=== PATIENT | male | born 1995 | race Caucasian/White ===

== ENCOUNTER 2017-03-02 14:54 | Emergency (ER) | payer OTHER ==
[~2017-03-02] VITALS: Ht 190.5 cm; Wt 84.2 kg
[2017-03-02] MEDS ORDERED: ONDANSETRON ODT 4 MG ONE (15:25)
[2017-03-02] MEDS ORDERED: ONDANSETRON ODT 4 MG PO ONE (15:30)
[2017-03-02] MEDS ORDERED: SODIUM CHLORIDE 0.9% 1,000 ML IV ONE (16:14)
[2017-03-02] MEDS ORDERED: ONDANSETRON 2MG/ML, 2ML ONE ×2 (16:16→16:49)
[2017-03-02] MEDS ORDERED: FAMOTIDINE 20 MG/2 ML ONE (16:16)
[2017-03-02] MEDS ORDERED: FAMOTIDINE 20 MG/2 ML IVP ONE (16:30)
[2017-03-02] MEDS ORDERED: SODIUM CHLORIDE 0.9% 1,000ML IVBOLUS ONE (16:30)
[2017-03-02] MEDS ORDERED: SODIUM CHLORIDE FLUSH 10ML SYR IVF ONE (16:30)
[2017-03-02] MEDS ORDERED: ONDANSETRON 2MG/ML, 2ML IVPush ONE (16:30)
[2017-03-02 16:44] LABS: BLOOD UREA NITROGEN 13 mg/dL (7-18)
[2017-03-02 16:47] LABS: ASPARTATE AMINO TRANSFERASE 24 U/L (15-37)
[2017-03-02] MEDS ORDERED: KETOROLAC 30 MG/1 ML ONE (16:49)
[2017-03-02] MEDS ORDERED: KETOROLAC 30 MG/1 ML IVPush ONE (17:00)
[2017-03-02] MEDS ORDERED: PROCHLORPERAZINE 5 MG/ML, 2ML ONE (17:29)
[2017-03-02] MEDS ORDERED: PROCHLORPERAZINE 5 MG/ML, 2ML IVPush ONE (17:30)
[2017-03-02 19:29] VITALS: BP 130/73
== END 2017-03-02 19:31 | disposition home or self-care (01) ==
LOC: ED 16:44
DX: R10.84 Generalized abdominal pain (principal); R11.2 Nausea with vomiting, unspecified; D72.829 Elevated white blood cell count, unspecified
CPT/HCPCS: 36415; 80053; 83690; 85025; 96361; 96374; 96375; 99285; J0780; J1885; J2405; J7030; Q0162; S0028

== ENCOUNTER 2017-05-23 18:47 | Emergency (ER) | payer OTHER ==
[~2017-05-23] VITALS: Ht 190.5 cm; Wt 81.4 kg
[2017-05-23] MEDS ORDERED: FAMOTIDINE 20 MG/2 ML IVP ONE (19:00)
[2017-05-23] MEDS ORDERED: ONDANSETRON 2MG/ML, 2ML IVPush ONE (19:00)
[2017-05-23] MEDS ORDERED: SODIUM CHLORIDE 0.9% 1,000ML IVBOLUS ONE (19:00)
[2017-05-23] MEDS ORDERED: SODIUM CHLORIDE FLUSH 10ML SYR IVF ONE (19:00)
[2017-05-23 19:27] LABS: ASPARTATE AMINO TRANSFERASE 27 U/L (15-37); BLOOD UREA NITROGEN 21 mg/dL (7-18)
[2017-05-23] MEDS ORDERED: ONDANSETRON 2MG/ML, 2ML ONE (19:35)
[2017-05-23] MEDS ORDERED: FAMOTIDINE 20 MG/2 ML ONE (19:35)
[2017-05-23] MEDS ORDERED: SODIUM CHLORIDE 0.9%, 500ML IVBOLUS ONE ×2 (20:00→21:00)
[2017-05-23] MEDS ORDERED: METOCLOPRAMIDE 5 MG/ML, 2ML IVPush ONE (20:30)
[2017-05-23] MEDS ORDERED: METOCLOPRAMIDE 5 MG/ML, 2ML ONE (20:33)
[2017-05-23 20:50] LABS: DAU SCREEN DISCLAIMER
[2017-05-23 22:15] VITALS: BP 103/62
== END 2017-05-23 22:30 | disposition home or self-care (01) ==
LOC: ED 21:03
DX: R06.00 Dyspnea, unspecified (principal); R10.30 Lower abdominal pain, unspecified; R11.10 Vomiting, unspecified; F11.90 Opioid use, unspecified, uncomplicated
CPT/HCPCS: 36415; 74022; 80053; 80307; 81001; 83690; 85025; 87086; 96361; 96374; 96375; 99285; J2405; J2765; J7030; J7040; S0028

== ENCOUNTER 2017-08-20 12:42 | Inpatient (IN) | payer OTHER ==
[~2017-08-20] VITALS: Ht 190.5 cm; Wt 84.8 kg
[2017-08-20] MEDS ORDERED: SODIUM CHLORIDE FLUSH 10ML SYR IVF ONE (14:00)
[2017-08-20] MEDS ORDERED: ONDANSETRON 2MG/ML, 2ML IVPush ONE (14:00)
[2017-08-20] MEDS ORDERED: SODIUM CHLORIDE 0.9% 1,000ML IVBOLUS ONE ×2 (14:00→15:30)
[2017-08-20] MEDS ORDERED: HALOPERIDOL 5 MG/ML IM ONE (14:00)
[2017-08-20] MEDS ORDERED: DIPHENHYDRAMINE 50 MG/ML, 1ML IVPush ONE (14:00)
[2017-08-20] MEDS ORDERED: DIPHENHYDRAMINE 50 MG/ML, 1ML ONE (14:10)
[2017-08-20] MEDS ORDERED: HALOPERIDOL 5 MG/ML ONE (14:10)
[2017-08-20] MEDS ORDERED: ONDANSETRON 2MG/ML, 2ML ONE (14:10)
[2017-08-20 14:16] LABS: HEMATOCRIT 52.6 % (39.2-51.8); WHITE BLOOD COUNT 14.3 x10^3/uL (3.4-10)
[2017-08-20 14:22] LABS: ASPARTATE AMINO TRANSFERASE 24 U/L (15-37); BLOOD UREA NITROGEN 28 mg/dL (7-18)
[2017-08-20] MEDS ORDERED: LORazepam 2 MG/ML, 1ML ONE (16:45)
[2017-08-20] MEDS ORDERED: LORazepam 2 MG/ML, 1ML IVPush ONE (17:00)
[2017-08-20] MEDS ORDERED: PROMETHAZINE 25 MG/ML, 1ML IM PRN (18:00)
[2017-08-20] MEDS ORDERED: MAALOX/HYOSCYAMINE/LIDOCAINE 45 ML BTL PO ONE (18:30)
[2017-08-20 19:34] VITALS: BP 121/51
[2017-08-20] MEDS: SODIUM CHLORIDE 0.9% 1,000 ML IV SCH (20:07)
[2017-08-20 20:25] VITALS: BP 121/51
[2017-08-20] MEDS ORDERED: FAMOTIDINE 20 MG/2 ML IVPush SCH (21:00)
[2017-08-20] MEDS: ONDANSETRON 2MG/ML, 2ML IVPush PRN (21:18)
[2017-08-20] MEDS: HEPARIN 5,000 UNITS/ML, 1ML SQ SCH (21:39)
[2017-08-21] MEDS: SODIUM CHLORIDE 0.9% 1,000 ML IV SCH ×4 (03:16→20:25)
[2017-08-21 03:40] VITALS: BP 118/56
[2017-08-21] MEDS: ONDANSETRON 2MG/ML, 2ML IVPush PRN ×3 (04:15→18:37)
[2017-08-21] MEDS: HEPARIN 5,000 UNITS/ML, 1ML SQ SCH ×3 (06:23→21:00)
[2017-08-21 06:29] LABS: HEMATOCRIT 43.5 % (39.2-51.8); HEMOGLOBIN 14.6 g/dL (13.7-18.0); WHITE BLOOD COUNT 9.1 x10^3/uL (3.4-10)
[2017-08-21 06:38] LABS: ASPARTATE AMINO TRANSFERASE 31 U/L (15-37); BLOOD UREA NITROGEN 21 mg/dL (7-18)
[2017-08-21 06:53] VITALS: BP 129/65
[2017-08-21 15:30] VITALS: BP 140/74
[2017-08-21 19:10] VITALS: BP 120/55
[2017-08-21] MEDS ORDERED: DIPHENHYDRAMINE 25 MG CAPSULE PO PRN (22:00)
[2017-08-22] MEDS: ONDANSETRON 2MG/ML, 2ML IVPush PRN (01:21)
[2017-08-22] MEDS: SODIUM CHLORIDE 0.9% 1,000 ML IV SCH ×3 (02:32→14:15)
[2017-08-22 02:52] VITALS: BP 129/70
[2017-08-22] MEDS: HEPARIN 5,000 UNITS/ML, 1ML SQ SCH ×2 (05:00→14:15)
[2017-08-22 05:46] LABS: HEMOGLOBIN 14.5 g/dL (13.7-18.0); WHITE BLOOD COUNT 7.4 x10^3/uL (3.4-10)
[2017-08-22 06:04] LABS: BLOOD UREA NITROGEN 13 mg/dL (7-18)
[2017-08-22 06:31] VITALS: BP 118/62
[2017-08-22 12:49] VITALS: BP 117/61
== END 2017-08-22 14:45 | disposition home or self-care (01) | DRG 683 ==
LOC: ED 14:47 → EDIP 17:52 → 3NE 19:30
PROVIDERS: ADMIT Internal Medicine; ATTEND Internal Medicine
DX: N17.0 Acute kidney failure with tubular necrosis (principal); M62.82 Rhabdomyolysis; E83.52 Hypercalcemia; E86.0 Dehydration; F12.90 Cannabis use, unspecified, uncomplicated; J45.990 Exercise induced bronchospasm; D72.829 Elevated white blood cell count, unspecified; Z91.14 Patient's other noncompliance with medication regimen
CPT/HCPCS: 36415; 74000; 80048; 80053; 81003; 82550; 83690; 83735; 84100; 84443; 85025; 96361; 96372; 96374; 96375; J1644; J2405; J2550; J1200; J1630; J2060; J7030; Q0163